=== PATIENT | female | born 1975 | race Caucasian/White ===

== ENCOUNTER 2017-05-15 23:41 | Emergency (ER) | payer MEDICAID, SELFPAY ==
[2017-05-16 00:01] VITALS: BP 135/91; PULSE 119; RESP 16; TEMP 37; O2SAT 95; BMI 26.5
--- NOTE | 2017-05-16 00:30 | HMH.EDSKAF ---
ED Disposition Clinical Impression: Dermatitis Disposition: Left Against Medical Advice Condition on Discharge: Good Instructions: DI for Skin Abscess Additional Instructions: see pcp for follow up - Critical Care Critical Care Time: No Attestation: On 05/15/17, the high probability of a clinically significant, sudden or life threatening deterioration of the following system(s) required my full and direct attention, intervention and personal management. The time I documented below is in addition to time spent performing reported procedures but includes the following listed in this critical care notation. Medical Decision Making - Medical Records Medical records reviewed: Yes: I reviewed the patient's medical records. Vital Signs: 05/16/17 00:01 05/16/17 00:35 Temperature 98.6 F 0 F L Temperature Source Oral Pulse Rate 0 L Pulse Rate [Left Radial] 119 H Respiratory Rate 16 0 L Blood Pressure 0/0 Blood Pressure [Right Arm] 135/91 Blood Pressure Mean [Right Arm] 105 Blood Pressure Source [Right Arm] Automatic Cuff Blood Pressure Position [Right Arm] Sitting 02 Sat by Pulse Oximetry 95 Oxygen Delivery Method Room Air Room Air Orders (Tests/Meds): ORDERS Category Date Time Status CBC [Complete Blood Count Auto Diff] Stat Lab 05/16/17 00:29 Ordered CMP [Comprehensive Metabolic Panel] Stat Lab 05/16/17 00:29 Ordered ESR [Erythrocyte Sedimentation Rate] Stat Lab 05/16/17 00:29 Ordered - Bj Inquiry Pt receiving controlled substance: No Skin/Abscess/FB HPI - General Chief complaint: Skin/Abscess/Foreign Body Stated complaint: bites on body,pain in fingers Time Seen by Provider: 05/16/17 00:30 Mode of Arrival: Ambulatory Source of Information: Patient, Spouse, Medical Record Limitations: No Limitations Description of Symptoms (Recalled from ER Triage Doc. by RN): pt believes she may have parasitic infection, various sores - History of Present Illness HPI narrative: pt with concern about possible parasitic infection with skin lesions and ear pain - no known exposure MD complaint: lesion Onset (ago): day(s) Tetanus up to date: unsure Location: generalized Severity: moderate - Related Data Home Medications Medication Instructions Recorded Confirmed Albuterol Sulfate [Albuterol HFA 2 act INHALATION Q4HP PRN 05/16/17 05/16/17 Inhaler] Mometasone/Formoterol [Dulera 100 1 act INHALATION DAILY 05/16/17 05/16/17 Mcg/5 Mcg Inhaler] Allergies Allergy/AdvReac Type Severity Reaction Status Date / Time Penicillins Allergy Verified 05/16/17 00:11 [facility] History I have reviewed the patient's past medical history: Yes Medical History: Denies:: Cancer, Diabetes Mellitus Type 1, Diabetes Mellitus Type 2, MRSA Laterality Cases: Bilateral: Tonsillectomy Amputation: No Fractures: No - Social History Smoking Status: Current every day smoker Tobacco Type: cigarettes # Packs/Day (cigarettes): 1 Alcohol Intake: never - Psychiatric History Expresses thoughts of harming self/others: None Suicide Plan Description: No Plan ROS Obtained: Yes All systems reviewed & no additional complaints - Constitutional Constitutional: Denies fever(s) - Eyes Eyes: Denies change in vision - ENT Ears, Nose, Mouth, and Throat: Denies sore throat - Cardiovascular Cardiovascular: Denies chest pain at rest - Respiratory Respiratory: No chest congestion - Gastrointestinal Gastrointestingal: Denies: abdominal pain - Musculoskeletal Musculoskeletal: Denies joint pain - Integumentary/Breasts Skin/Breast: Reports as per HPI, Denies boil, Reports lesions, Reports sores - Neurologic Neurologic: Denies seizure-like activity Physical Exam - General General appearance: in no apparent distress - Head Head exam: normocephalic - Eye Eye exam: Present: PERRL, EOMI - ENT ENT exam: Present: other (excoriated ext ear bilat - tm ok ). Absent: mucous membran
[2017-05-16 00:35] VITALS: BP 0/0; PULSE 0; RESP 0; TEMP -17.7; TEMP 0; O2SAT 0
--- NOTE | 2017-05-16 00:39 | PC.NURSE ---
dr tan speaking with pt, her comes to door and says they will go to . pt left AMA.
--- NOTE | 2017-05-16 00:43 | ED_ITS ---
ED Disposition Clinical Impression: Dermatitis Disposition: Left Against Medical Advice Condition on Discharge: Good Instructions: DI for Skin Abscess Additional Instructions: see pcp for follow up - Critical Care Critical Care Time: No Attestation: On 05/15/17, the high probability of a clinically significant, sudden or life threatening deterioration of the following system(s) required my full and direct attention, intervention and personal management. The time I documented below is in addition to time spent performing reported procedures but includes the following listed in this critical care notation. Medical Decision Making - Medical Records Medical records reviewed: Yes: I reviewed the patient's medical records. Vital Signs: 05/16/17 00:01 05/16/17 00:35 Temperature 98.6 F 0 F L Temperature Source Oral Pulse Rate 0 L Pulse Rate [Left Radial] 119 H Respiratory Rate 16 0 L Blood Pressure 0/0 Blood Pressure [Right Arm] 135/91 Blood Pressure Mean [Right Arm] 105 Blood Pressure Source [Right Arm] Automatic Cuff Blood Pressure Position [Right Arm] Sitting 02 Sat by Pulse Oximetry 95 Oxygen Delivery Method Room Air Room Air Orders (Tests/Meds): ORDERS Category Date Time Status CBC [Complete Blood Count Auto Diff] Stat Lab 05/16/17 00:29 Ordered CMP [Comprehensive Metabolic Panel] Stat Lab 05/16/17 00:29 Ordered ESR [Erythrocyte Sedimentation Rate] Stat Lab 05/16/17 00:29 Ordered - Bj Inquiry Pt receiving controlled substance: No Skin/Abscess/FB HPI - General Chief complaint: Skin/Abscess/Foreign Body Stated complaint: bites on body,pain in fingers Time Seen by Provider: 05/16/17 00:30 Mode of Arrival: Ambulatory Source of Information: Patient, Spouse, Medical Record Limitations: No Limitations Description of Symptoms (Recalled from ER Triage Doc. by RN): pt believes she may have parasitic infection, various sores - History of Present Illness HPI narrative: pt with concern about possible parasitic infection with skin lesions and ear pain - no known exposure MD complaint: lesion Onset (ago): day(s) Tetanus up to date: unsure Location: generalized Severity: moderate - Related Data Home Medications Medication Instructions Recorded Confirmed Albuterol Sulfate [Albuterol HFA 2 act INHALATION Q4HP PRN 05/16/17 05/16/17 Inhaler] Mometasone/Formoterol [Dulera 100 1 act INHALATION DAILY 05/16/17 05/16/17 Mcg/5 Mcg Inhaler] Allergies Allergy/AdvReac Type Severity Reaction Status Date / Time Penicillins Allergy Verified 05/16/17 00:11 [facility] History I have reviewed the patient's past medical history: Yes Medical History: Denies:: Cancer, Diabetes Mellitus Type 1, Diabetes Mellitus Type 2, MRSA Laterality Cases: Bilateral: Tonsillectomy Amputation: No Fractures: No - Social History Smoking Status: Current every day smoker Tobacco Type: cigarettes # Packs/Day (cigarettes): 1 Alcohol Intake: never - Psychiatric History Expresses thoughts of harming self/others: None Suicide Plan Description: No Plan ROS Obtained: Yes All systems reviewed & no additional complaints - Constitutional Constitutional: Denies fever(s) - Eyes Eyes: Denies change in vision
== END 2017-05-16 00:35 | disposition left against medical advice (07) ==
PROVIDERS: Emergency Provider Emergency Medicine
DX: L30.9 Dermatitis, unspecified (principal); F17.210 Nicotine dependence, cigarettes, uncomplicated; Z88.0 Allergy status to penicillin
CPT/HCPCS: 99281